=== PATIENT | female | born 1940 | race Caucasian/White ===

== ENCOUNTER 2017-04-08 09:57 | Day surgery (SDC) | payer MEDICARE, BC ==
[~2017-04-08 09:57] MED LIST: Bupivacaine 0.5% 50 ML MDV ONE; Lidocaine 1% with EPINEPHrine 1:100,000 50 ML MDV ONE
[2017-04-08] MEDS: Lactated Ringers 1,000 ML IV SCH ×2 (11:02→14:24)
[2017-04-08] MEDS ORDERED: fentaNYL 100 MCG/2 ML SDV ONE (11:40)
[2017-04-08] MEDS ORDERED: Propofol 200 MG/20 ML SDV ONE (11:40)
[2017-04-08] MEDS ORDERED: Succinylcholine 200 MG/10 ML MDV ONE (12:18)
[2017-04-08] MEDS ORDERED: Albuterol/Ipratropium 3.0-0.5 MG/3 ML Neb Soln INH PRN (12:50)
[2017-04-08] MEDS ORDERED: Fluticasone Propionate Nasal Spray 16 GM Bottle NASBOTH PRN (12:50)
[2017-04-08] MEDS ORDERED: Ondansetron 4 MG/2 ML SDV IVPUSH PRN (12:54)
[2017-04-08] MEDS ORDERED: HYDROmorphone/Normal Saline 15 MG/30 ML PCA IV PRN (13:07)
[2017-04-08] MEDS ORDERED: Naloxone 0.4 MG/ML SDV IVPUSH PRN (13:07)
[2017-04-08] MEDS: Insulin Aspart 100 Units/ML 3 ML Pen SUBCUT SCH ×2 (18:36→20:59)
[2017-04-08] MEDS ORDERED: Simvastatin 20 MG Tab PO SCH (21:00)
[2017-04-08] MEDS: Insulin Detemir 100 Units/ML 3 ML Pen SUBCUT SCH (21:00)
[2017-04-09] MEDS: Lactated Ringers 1,000 ML IV SCH (00:32)
[2017-04-09] MEDS ORDERED: Acetaminophen/HYDROcodone 325-5 MG Tab PO PRN (07:18)
[2017-04-09] MEDS ORDERED: Levothyroxine 100 MCG Tab PO SCH (07:30)
--- NOTE | 2017-04-09 07:34 | PCM.DCSUM1 ---
Discharge Summary - Hospital Course Free Text/Narrative:: This 77 year old white female had a slowly enlarging mass in her right axilla/ breast which finally became and uncomfortable nuisance. Mammogram is consistent with it being benign. She was admitted on April 08 and underwent excision of the mass which is consistent with a lipoma and measured about 25 cm in diameter. A JÚNIOR drain was left in place. She was kept over night. She feels fine. She is eating. She is afebrile and wants to go home. Her JÚNIOR drain produced more than 70 ml's over night. She is discharged after she is taught care of her JÚNIOR drain. Brief History: See above narrative - Discharge Data Discharge Date: 04/09/17 Discharge Disposition: Home, Self-Care 01 Condition: Good - Discharge Diagnosis/Problem(s) (1) Large mass of right breast SNOMED Code(s): 14260523 ICD Code: N63.10 - UNSPECIFIED LUMP IN THE RIGHT BREAST, UNSPECIFIED QUADRANT Status: Acute Current Visit: Yes Problem Details: Excision of large ( 25 cm) Right Axillary breast mass - Patient Summary/Data Operative Procedure(s) Performed: Excision of 25 cm in diamter right axilla/ breast mass. Consults: Consultations 04/08/17 12:54 Consult to Diabetic Nurse Specialist [CONS] Routine Comment: Physician Instructions: Consult to Inspector Eyeglass [CONS] Routine Comment: Physician Instructions: Quantity: Hospital Course: See above narrative. - Patient Instructions Diet: Usual Diet as Tolerated Activity: As Tolerated Driving, Other: Do not drive if taking narcotic pain medication. Showering/Bathing: No Tub Bathing/Swimming, Shower in AM Wound/Incision Care: Change Dressing Daily Notify Provider of: Fever, Increased Pain, Swelling and Redness, Drainage, Nausea and/or Vomiting - Discharge Plan Prescriptions/Med Rec: Acetaminophen/HYDROcodone [[place] 325-5 MG] 1 - 2 tab PO Q4H PRN #30 tablet PRN Reason: Pain Home Medications: Home Meds Albuterol/Ipratropium [Combivent Respimat] 1 puff PO Q4H PRN 04/06/17 [History] Atenolol [Tenormin] 25 mg PO DAILY 04/06/17 [History] Bumetanide 0.5 mg PO DAILY 04/06/17 [History] Fluticasone Propionate [Flonase Allergy Relief] 1 spray NASBOTH DAILY PRN [History] Ibuprofen [Advil] 400 mg PO DAILY 04/06/17 [History] Indomethacin 25 mg PO TID PRN 04/06/17 [History] Insulin Degludec [Tresiba Flextouch U-100] 30 units SUBCUT DAILY 04/06/17 [ History] Levothyroxine [Synthroid] 100 mcg PO DAILY 04/06/17 [History] Oxybutynin Chloride 5 mg PO DAILY 04/06/17 [History] Simvastatin [Zocor] 20 mg PO BEDTIME 04/06/17 [History] glipiZIDE [Glucotrol] 20 mg PO DAILY 04/06/17 [History] metFORMIN [Glucophage XR] 1,000 mg PO DAILY 04/06/17 [History] Acetaminophen/HYDROcodone [[place] 325-5 MG] 1 - 2 tab PO Q4H PRN #30 tablet 04/09 [Rx] Referrals: José Miguel Levine MD [Physician] - (Next week for pathology review, skin staple removal and (when JÚNIOR output is less than or equal to 30 ml's/day) removal of her JÚNIOR drain. ) Rashawn Aguillon MD [Primary Care Provider] - (See Dr. Aguillon if she can not make it to Dr. Levine next week for skin staple removal, review pathology and remove JÚNIOR drain when its daily output is less than or equal to 30 ml's per day. ) - Discharge Summary/Plan Comment DC Time >30 min.: Yes Discharge Summary/Plan Comment: See above narrative. - Review of Systems General: Reports: No Symptoms HEENT: Reports: No Symptoms Pulmonary: Reports: No Symptoms Cardiovascular: Reports: No Symptoms Gastrointestinal: Reports: No Symptoms Genitourinary: Reports: No Symptoms Musculoskeletal: Reports: No Symptoms Skin: Reports: No Symptoms Neurological: Reports: No Symptoms Psychiatric: Reports: No Symptoms - Patient Data Vitals - Most Recent: Last Vital Signs Temp 96.8 F 04/09/17 07:21 Pulse 71 04/09/17 07:21 Resp 18 04/09/17 07:21 BP 160/59 H 04/09/17 07:21 Pulse Ox 92 L 11/16/17 07:21 Weight - Most Recent: 258 lb I&O - Last 24 hours: Intake & Output 04/08/17 04/09/17 04/09/17 22:59 06:59 14:59 Intake Total 440 1190 Output Total 220 750 Balance 220 1190 -750 Lab Results - Last 24 hrs: Laboratory Results - last 24 hr 04/09/17 04/09/17 Range/Units 04:10 04:10 WBC 11.7 H (4.5-11.0) K/uL RBC 4.56 (3.30-5.50) M/uL Hgb 12.9 (12.0-15.0) g/dL Hct 42.1 (36.0-48.0) % MCV 92 (80-98) fL MCH 28 (27-31) pg MCHC 31 L (32-36) % Plt Count 321 (150-400) K/uL Sodium 142 (140-148) mmol/L Potassium 4.7 (3.6-5.2) mmol/L Chloride 106 (100-108) mmol/L Carbon Dioxide 29 (21-32) mmol/L Anion Gap 7.4 (5.0-14.0) mmol/L BUN 29 H (7-18) mg/dL Creatinine 1.2 H (0.6-1.0) mg/dL Est Cr Clr Drug Dosing 35.33 mL/min Estimated GFR (MDRD) 44 L (>60) Glucose 144 H (74-106) mg/dL Calcium 9.4 (8.5-10.1) mg/dL Med Orders - Current: Current Medications Hydrocodone Bitart/Acetaminophen ([place] 325-5 Mg) 1 - 2 tab PO Q4H PRN PRN Reason: Pain Albuterol/Ipratropium (Duoneb 3.0-0.5 Mg/3 Ml) 3 ml INH Q4H PRN PRN Reason: Shortness of Breath Atenolol (Tenormin) 25 mg PO DAILY LARRY Bumetanide (Bumex) 0.5 mg PO DAILY LARRY Fluticasone Propionate (Flonase) 0 gm NASBOTH DAILY PRN PRN Reason: Congestion Glipizide (Glucotrol) 20 mg PO DAILY@0800 LARRY Lactated Ringer's (Ringers, Lactated) 1,000 mls @ 100 mls/hr IV ASDIRECTED LARRY Last Admin: 04/09/17 00:32 Dose: 100 mls/hr Insulin Aspart (Novolog) 0 unit SUBCUT ASDIRECTED [facility] PRN Reason: Protocol Last Admin: 04/08/17 20:59 Dose: 4 units Insulin Detemir (Levemir) 15 unit SUBCUT BID [facility] Last Admin: 04/08/17 21:00 Dose: 15 units Levothyroxine Sodium (Synthroid) 100 mcg PO ACBREAKFAST [facility] Metformin HCl (Glucophage Xr) 1,000 mg PO DAILY@0800 [facility] Naloxone HCl (Narcan) 0.4 mg IVPUSH Q2M PRN PRN Reason: Respiratory Distress Ondansetron HCl (Zofran) 4 mg IVPUSH Q6H PRN PRN Reason: Nausea/Vomiting Oxybutynin Chloride (Oxybutynin) 5 mg PO DAILY [facility] Simvastatin (Zocor) 20 mg PO BEDTIME [facility] Last Admin: 04/08/17 21:04 Dose: 20 mg Discontinued Medications Bupivacaine HCl (Marcaine 0.5%) Confirm Administered Dose 50 ml .ROUTE .STK-MED ONE Stop: 04/08/17 07:31 Fentanyl (Sublimaze) Confirm Administered Dose 100 mcg .ROUTE .STK-MED ONE Stop: 04/08/17 11:41 Hydromorphone HCl (Dilaudid Relocation Coordinator 15 Mg In Ns 30 Ml) 0 mg IV ASDIRECTED PRN; Protocol PRN Reason: Pain Last Admin: 04/08/17 13:18 Dose: 0.3 mg Lidocaine/Epinephrine (Xylocaine 1% With Epinephrine 1:100,000) Confirm Administered Dose 50 ml .ROUTE .STK-MED ONE Stop: 04/08/17 07:31 Propofol (Diprivan 20 Ml) Confirm Administered Dose 200 mg .ROUTE .STK-MED ONE Stop: 04/08/17 11:41 Succinylcholine Chloride (Quelicin) Confirm Administered Dose 200 mg .ROUTE .STK -MED ONE Stop: 04/08/17 12:19 - Exam General: Reports: Alert, Oriented, Cooperative Lungs: Reports: Clear to Auscultation, Normal Respiratory Effort Cardiovascular: Reports: Regular Rate, Regular Rhythm GI/Abdominal Exam: Normal Bowel Sounds, Soft, Non-Tender Back Exam: Reports: Normal Inspection, Full Range of Motion Extremities: Normal Inspection Skin: Reports: Warm, Dry, Intact Wound/Incisions: Reports: Dressing Dry and Intact Neurological: Reports: No New Focal Deficit Psy/Mental Status: Reports: Alert, Normal Affect, Normal Mood *Q Meaningful Use (DIS) - VTE *Q VTE Criteria *Q: - Stroke *Q Stroke Criteria *Q: - AMI *Q AMI Criteria *Q:
[2017-04-09] MEDS ORDERED: metFORMIN 500 MG Tab.ER PO SCH (08:00)
[2017-04-09] MEDS ORDERED: glipiZIDE 5 MG Tab PO SCH (08:00)
[2017-04-09] MEDS: Insulin Detemir 100 Units/ML 3 ML Pen SUBCUT SCH (08:32)
[2017-04-09] MEDS: Insulin Aspart 100 Units/ML 3 ML Pen SUBCUT SCH (08:40)
[2017-04-09] MEDS ORDERED: INSULIN DEGLUDEC 30 UNIT SUBCUT SCH (09:00)
[2017-04-09] MEDS ORDERED: Atenolol 25 MG Tab PO SCH (09:00)
[2017-04-09] MEDS ORDERED: Oxybutynin 5 MG Tab PO SCH (09:00)
[2017-04-09] MEDS ORDERED: Bumetanide 1 MG Tab PO SCH (09:00)
--- NOTE | 2017-04-09 10:56 | OR ---
DATE OF PROCEDURE: 04/08/2017 PREOPERATIVE DIAGNOSIS: Large right axillary and breast mass. POSTOPERATIVE DIAGNOSIS: A 25 cm lipomatous-appearing right axillary and breast mass. PROCEDURE: Excision of large 25 cm in diameter right axillary and breast mass. SURGEON: Magnus Marina MD. ANESTHESIA: General endotracheal. INDICATION: This 77-year-old white female has noted a mass developing in the tail of her right breast. Over years, it has slowly increased in size, and it has become bothersome, as it has become so large. Radiographic studies indicate it appears benign. Request is made for excision of this mass. I counseled her for excision of this large right mass, which appears to be in the area of the tail of breast, including risks and alternatives, and she gave her informed consent to proceed. DESCRIPTION OF PROCEDURE: After adequate general endotracheal anesthesia was obtained, a wedge was placed under her right flank. Her upper chest, right shoulder, and arm to the elbow, along with her neck were prepped and draped in the usual sterile fashion. Time-out was held. A transverse incision was made over this mass. The underlying mass was identified. It could be easily extruded out of the surrounding tissue with compression laterally on both sides. It is consistent with a lipoma. There was no evidence of invasion. The base of it was divided with cautery and delivered from the field. It measured 25 cm in diameter. The incision was irrigated with sterile water and suctioned dry. We did place clips around the edges on all sides of the cavity. A Jose-Baca drain was brought out through a separate stab wound inferiorly and placed up in the cavity. Interrupted stitches of 3-0 Vicryl were used to close the deep tissues. Skin keyshawn were placed to approximate the skin. A Jose-Baca drain was anchored with 3-0 Vicryl suture. A sterile dressing was applied. The anesthesia was reversed. She was extubated and brought to recovery room in good condition. Magnus Marina MD /[id number] MTDD
== END 2017-04-09 10:10 | disposition home or self-care (01) ==
LOC: JP.SDS 09:57 → JP.MS 14:01 → JP.SDS 04-09 10:10
PROVIDERS: ATTEND Surgery
DX: M79.89 Other specified soft tissue disorders (principal); N63.10 Unspecified lump in the right breast, unspecified quadrant; E03.9 Hypothyroidism, unspecified; E11.22 Type 2 diabetes mellitus with diabetic chronic kidney disease; J44.9 Chronic obstructive pulmonary disease, unspecified; I12.9 Hypertensive chronic kidney disease with stage 1 through stage 4 chronic kidney disease, or unspecified chronic kidney disease; N18.3 Chronic kidney disease, stage 3 (moderate); Z79.84 Long term (current) use of oral hypoglycemic drugs; Z79.899 Other long term (current) drug therapy
CPT/HCPCS: 21552; 36415; 80048; 82962; 85027; 88304; A9270; J0330; J1170; J2704; J3010; J7120

== ENCOUNTER 2017-10-13 10:23 | Inpatient (IN) | payer MEDICARE, BC ==
[2017-10-13] MEDS ORDERED: Lactated Ringers 1,000 ML IV SCH (10:45)
[2017-10-13] MEDS ORDERED: cefTRIAXone 2 GM in Sodium Chloride 0.9% 50 ML IV SCH (10:45)
[2017-10-13] MEDS ORDERED: Albuterol/Ipratropium 3.0-0.5 MG/3 ML Neb Soln NEB ONE (10:47)
--- NOTE | 2017-10-13 10:53 | EDM.PDOC ---
ED HPI GENERAL MEDICAL PROBLEM - General Chief Complaint: Respiratory Problem Stated Complaint: SHORTNESS OF BREATH Time Seen by Provider: 10/13/17 10:39 Source of Information: Reports: Patient, Family, RN Notes Reviewed History Limitations: Reports: Respiratory Distress - History of Present Illness INITIAL COMMENTS - FREE TEXT/NARRATIVE: 77-year-old female presents to the emergency department today with complaint of shortness of breath, she states she's been getting ill for the last 3 days does monitor her oxygen saturation at home noticed last night she was down into the low 70s. On arrival to the emergency department initial vital signs show oxygen saturation 65% extremely dyspneic and in respiratory distress, she can speak in single word sentences only, complains of rhinorrhea, shortness of breath no nausea vomiting chest pain no or GI symptomatology - Related Data Allergies Allergy/AdvReac Type Severity Reaction Status Date / Time No Known Allergies Allergy Verified 04/08/17 10:41 Home Meds: Home Meds Albuterol/Ipratropium [Combivent Respimat] 1 puff PO Q4H PRN 04/06/17 [History] Atenolol [Tenormin] 25 mg PO DAILY 04/06/17 [History] Bumetanide 0.5 mg PO DAILY 04/06/17 [History] Fluticasone Propionate [Flonase Allergy Relief] 1 spray NASBOTH DAILY PRN [History] Ibuprofen [Advil] 400 mg PO DAILY 04/06/17 [History] Indomethacin 25 mg PO TID PRN 04/06/17 [History] Levothyroxine [Synthroid] 100 mcg PO DAILY 04/06/17 [History] Oxybutynin Chloride 5 mg PO DAILY 04/06/17 [History] Simvastatin [Zocor] 20 mg PO BEDTIME 04/06/17 [History] glipiZIDE [Glucotrol] 20 mg PO DAILY 04/06/17 [History] metFORMIN [Glucophage XR] 1,000 mg PO DAILY 04/06/17 [History] Insulin Degludec [Tresiba Flextouch U-100] 35 units SUBCUT DAILY 10/13/17 [ History] Past Medical History HEENT History: Reports: Cataract, Epistaxis, Other (See Below) Other HEENT History: wears glasses Cardiovascular History: Reports: High Cholesterol, Hypertension Respiratory History: Reports: Asthma, COPD, Other (See Below) Other Respiratory History: uses home O2 Genitourinary History: Reports: Other (See Below) Other Genitourinary History: large right breast mass 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: Musculoskeletal History: Reports: Arthritis Endocrine/Metabolic History: Reports: Diabetes, Type II, Hypothyroidism, Obesity /BMI 30+ Oncologic (Cancer) History: Reports: Other (See Below) 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 Denies: Fever, Chills HEENT: Reports: Rhinitis Respiratory: Reports: Shortness of Breath, Cough. Denies: Wheezing, Sputum Cardiovascular: Reports: Dyspnea on Exertion GI/Abdominal: Reports: No Symptoms : Reports: No Symptoms Musculoskeletal: Reports: No Symptoms Skin: Reports: No Symptoms Neurological: Reports: No Symptoms ED EXAM, GENERAL - Physical Exam Exam: See Below Free Text/Narrative:: General: Obese female, in respiratory distress tripoding speaking in single word sentences, alert and oriented x3 HEENT: head is atraumatic normocephalic, eyes pupils equal round reactive to light, sclera clear no conjunctivitis appreciated. Ears tympanic membranes clear and turner landmarks and light reflex are present bilaterally canals are clear. Nose no septal deviation, nares are clear, no blood present. Mouth mucosa is moist and pink no erythema or exudate noted in soft palate, tongue is midline uvula is midline, dentition is intact. Neck: Supple no thyromegaly no tracheal deviation. Nodes: Cervical nodes subclavicular nodes nontender no palpable lymphadenopathy noted. Lungs: Breath sounds are distant on appreciate any adventitious noises CV: Tachycardic rate and rhythm S1 and S2 appreciated no murmurs rubs or gallops noted. Abdomen: Soft, obese, nontender, no palpable masses or organomegaly appreciated , no distention no guarding bowel sounds are present, . Neuro: Cranial nerves II through XII grossly intact Skin: Warm and dry, intact Extremities: No lower extremity edema appreciated, Course - Vital Signs Last Recorded V/S: Last Vital Signs Temp 97.2 F 10/13/17 10:28 Pulse 109 H 10/13/17 10:44 Resp 22 H 10/13/17 10:44 BP 189/100 H 10/13/17 10:44 Pulse Ox 94 L 10/13/17 10:44 - Orders/Labs/Meds Orders: Active Orders 24 hr Category Date Time Status BIPAP Adult [RT BiPAP/CPAP] [RC] ASDIRECTED Care 10/13/17 10:53 Active RT Aerosol Therapy [RC] ASDIRECTED Care 10/13/17 10:47 Active Vital Signs [RC] Q1H Care 10/13/17 10:44 Active Chest 1V Frontal [CR] Urgent Exams 10/13/17 10:47 Taken CULTURE BLOOD [BC] Urgent Lab 10/13/17 10:50 Received CULTURE BLOOD [BC] Urgent Lab 10/13/17 11:00 Received UA W/MICROSCOPIC [URIN] Urgent Lab 10/13/17 10:44 Ordered Lactated Ringers [Ringers, Lactated] 1,000 ml Med 10/13/17 10:45 Active IV ASDIRECTED Blood Culture x2 Reflex Set [OM.PC] Urgent Oth 10/13/17 10:44 Ordered Medication Orders Lactated Ringer's (Ringers, Lactated) 1,000 mls @ 500 mls/hr IV ASDIRECTED LARRY Last Admin: 10/13/17 10:54 Dose: 500 mls/hr Labs: Laboratory Tests 10/13/17 10/13/17 10/13/17 Range/Units 11:00 11:00 11:00 WBC 23.0 H (4.5-11.0) K/uL RBC 5.24 (3.30-5.50) M/uL Hgb 15.6 H D (12.0-15.0) g/dL Hct 48.9 H (36.0-48.0) % MCV 93 (80-98) fL MCH 30 (27-31) pg MCHC 32 (32-36) % Plt Count 267 (150-400) K/uL Neut % (Auto) 94 H (36-66) % Lymph % (Auto) 2 L (24-44) % [place] % (Auto) 4 (2-6) % Eos % (Auto) 0 L (2-4) % Baso % (Auto) 0 (0-1) % Puncture Site ABG pH (7.350-7.450) ABG pCO2 (35.0-42.0) mmHg ABG pO2 (75.0-100.0) mmHg ABG HCO3 (22.0-26.0) mmol/L ABG Total CO2 (21.0-25.0) mmol/L ABG O2 Saturation (95.0-98.0) % ABG O2 Content (15.0-23.0) %vol ABG Base Excess mm/L ABG Hemoglobin (12.0-16.0) g/dL ABG Oxyhemoglobin % ABG Carboxyhemoglobin (0.0-1.6) % ABG Methemoglobin % Alen Test O2 Delivery Device Oxygen Flow Rate L Sodium 143 (140-148) mmol/L Potassium 4.5 (3.6-5.2) mmol/L Chloride 106 (100-108) mmol/L Carbon Dioxide 28 (21-32) mmol/L Anion Gap 9.1 (5.0-14.0) mmol/L BUN 23 H (7-18) mg/dL Creatinine 1.2 H (0.6-1.0) mg/dL Est Cr Clr Drug Dosing 36.75 mL/min Estimated GFR (MDRD) 44 L (>60) Glucose 216 H (74-106) mg/dL Lactic Acid 1.2 (0.4-2.0) mmol/L Calcium 8.7 (8.5-10.1) mg/dL Total Bilirubin 0.5 (0.2-1.0) mg/dL AST 16 (15-37) U/L ALT 22 (12-78) U/L Alkaline Phosphatase 77 (46-116) U/L C-Reactive Protein 8.89 H (0.0-0.3) mg/dL NT-Pro-B Natriuret Pep (5-450) pg/mL Total Protein 7.6 (6.4-8.2) g/dL Albumin 3.7 (3.4-5.0) g/dL Globulin 3.9 H (2.3-3.5) g/dL Albumin/Globulin Ratio 1.0 L (1.2-2.2) 10/13/17 10/13/17 Range/Units 11:00 11:00 WBC (4.5-11.0) K/uL RBC (3.30-5.50) M/uL Hgb (12.0-15.0) g/dL Hct (36.0-48.0) % MCV (80-98) fL MCH (27-31) pg MCHC (32-36) % Plt Count (150-400) K/uL Neut % (Auto) (36-66) % Lymph % (Auto) (24-44) % [place] % (Auto) (2-6) % Eos % (Auto) (2-4) % Baso % (Auto) (0-1) % Puncture Site Rt radial ABG pH 7.355 (7.350-7.450) ABG pCO2 46.7 H (35.0-42.0) mmHg ABG pO2 69.8 L (75.0-100.0) mmHg ABG HCO3 25.4 (22.0-26.0) mmol/L ABG Total CO2 22.2 (21.0-25.0) mmol/L ABG O2 Saturation 93.5 L (95.0-98.0) % ABG O2 Content 20.1 (15.0-23.0) %vol ABG Base Excess -0.1 mm/L ABG Hemoglobin 15.5 (12.0-16.0) g/dL ABG Oxyhemoglobin 92.1 % ABG Carboxyhemoglobin 0.9 (0.0-1.6) % ABG Methemoglobin 0.6 % Alen Test Pass O2 Delivery Device Simple mask Oxygen Flow Rate 15 L Sodium (140-148) mmol/L Potassium (3.6-5.2) mmol/L Chloride (100-108) mmol/L Carbon Dioxide (21-32) mmol/L Anion Gap (5.0-14.0) mmol/L BUN (7-18) mg/dL Creatinine (0.6-1.0) mg/dL Est Cr Clr Drug Dosing mL/min Estimated GFR (MDRD) (>60) Glucose (74-106) mg/dL Lactic Acid (0.4-2.0) mmol/L Calcium (8.5-10.1) mg/dL Total Bilirubin (0.2-1.0) mg/dL AST (15-37) U/L ALT (12-78) U/L Alkaline Phosphatase (46-116) U/L C-Reactive Protein (0.0-0.3) mg/dL NT-Pro-B Natriuret Pep 2995 H (5-450) pg/mL Total Protein (6.4-8.2) g/dL Albumin (3.4-5.0) g/dL Globulin (2.3-3.5) g/dL Albumin/Globulin Ratio (1.2-2.2) Meds: Medications Generic Name Dose Route Start Last Admin Trade Name Freq PRN Reason Stop Dose Admin Lactated Ringer's 1,000 mls @ 500 mls/hr 10/13/17 10:45 10/13/17 10:54 Ringers, Lactated IV 500 mls/hr ASDIRECTED LARRY Administration Discontinued Medications Generic Name Dose Route Start Last Admin Trade Name Freq PRN Reason Stop Dose Admin Albuterol/Ipratropium 3 ml 10/13/17 10:47 10/13/17 10:53 Duoneb 3.0-0.5 Mg/3 Ml NEB 10/13/17 10:48 3 ml ONETIME ONE Administration Ceftriaxone Sodium 2 gm/ 50 mls @ 100 mls/hr 10/13/17 11:00 10/13/17 11:16 Sodium Chloride IV 10/13/17 11:29 100 mls/hr ONETIME ONE Administration Departure - Departure Time of Disposition: 13:20 Disposition: Admitted As Inpatient 66 Condition: Fair Clinical Impression: Sepsis Qualifiers: Sepsis type: sepsis due to unspecified organism Qualified Code(s): A41.9 - Sepsis, unspecified organism - Discharge Information Referrals: Rashawn Aguillon MD [Primary Care Provider] - Forms: ED Department Discharge - My Orders Last 24 Hours: My Active Orders 10/13/17 10:44 Vital Signs [RC] Q1H UA W/MICROSCOPIC [URIN] Urgent Blood Culture x2 Reflex Set [OM.PC] Urgent 10/13/17 10:45 Lactated Ringers [Ringers, Lactated] 1,000 ml IV ASDIRECTED 10/13/17 10:47 RT Aerosol Therapy [RC] ASDIRECTED Chest 1V Frontal [CR] Urgent 10/13/17 10:50 CULTURE BLOOD [BC] Urgent 10/13/17 10:53 BIPAP Adult [RT BiPAP/CPAP] [RC] ASDIRECTED 10/13/17 11:00 CULTURE BLOOD [BC] Urgent - Assessment/Plan Last 24 Hours: My Active Orders 10/13/17 10:44 Vital Signs [RC] Q1H UA W/MICROSCOPIC [URIN] Urgent Blood Culture x2 Reflex Set [OM.PC] Urgent 10/13/17 10:45 Lactated Ringers [Ringers, Lactated] 1,000 ml IV ASDIRECTED 10/13/17 10:47 RT Aerosol Therapy [RC] ASDIRECTED Chest 1V Frontal [CR] Urgent 10/13/17 10:50 CULTURE BLOOD [BC] Urgent 10/13/17 10:53 BIPAP Adult [RT BiPAP/CPAP] [RC] ASDIRECTED 10/13/17 11:00 CULTURE BLOOD [BC] Urgent Plan: Assessment Acuity = acute Site and laterality = sepsis secondary to pneumonia complicated patient with known history of chronic obstructive pulmonary disease Etiology = suspicious for bacterial cause Manifestations = hypoxic, tachypnea, hypertensive Location of injury = Home Lab values = WBC elevated at 23.0 consistent leukocytosis ABG reveals pH 7.35 PCO2 46.7 PO2 69.8 and a bicarbonate 25.4 creatinine elevated 1.2 consistent with chronic renal failure stage G IIIB CRP elevated 8.9 lactic acid normal at 1.6 BNP elevated 2995 consistent with fluid overload type pattern chest x-ray reveals loss of costophrenic angle on the left lower lobe Plan Called discussed case with hospitalist radiation control technician he agreed to come and evaluate the patient emergency department for admission This note was dictated using [employer] voice recognition software please call with any questions on syntax or grammar.
[2017-10-13] MEDS ORDERED: cefTRIAXone 2 GM in Sodium Chloride 0.9% 50 ML IV ONE (11:00)
[2017-10-13] MEDS ORDERED: Azithromycin 500 MG in Sodium Chloride 0.9% 250 ML IV ONE (13:37)
[2017-10-13] MEDS ORDERED: methylPREDNISolone Sodium Succinate 125 MG/2 ML SDV IVPUSH ONE (13:37)
--- NOTE | 2017-10-13 13:54 | PCM.HP ---
H&P History of Present Illness - General Date of Service: 10/13/17 Admit Problem/Dx: Admission Diagnosis/Problem Admission Diagnosis/Problem Acute bronchitis Source of Information: Patient, Family, Provider History Limitations: Reports: No Limitations - History of Present Illness Initial Comments - Free Text/Narative: Giana presents to the emergency room today with 3 days of progressive shortness of breath and increasing cough. She coughed fairly persistently throughout much of the night last night. She has a loose cough but is not producing sputum. She is now short of breath even at rest. She did check her oxygen saturations at home and noted them to be in the 70s. She normally runs in the low 90s. She does have home oxygen but uses this only intermittently. She did use her inhaler at home but this did not provide much benefit. No subjective fevers or chills at home. She does not have chest pain or pleuritic chest pain. No sick contacts or travel. No change in bowel or bladder habits. No nausea or abdominal pain. Has not had much to eat in the last couple of days. Workup in the emergency room revealed significant hypoxia. White blood cell count is elevated at more than 20,000. Chest x-ray did not suggest pneumonia. She was started on noninvasive ventilation in the emergency room and will be admitted to the intensive care unit. - Related Data Allergies/Adverse Reactions: Allergies Allergy/AdvReac Type Severity Reaction Status Date / Time No Known Allergies Allergy Verified 04/08/17 10:41 Home Medications: Home Meds Albuterol/Ipratropium [Combivent Respimat] 1 puff PO Q4H PRN 04/06/17 [History] Atenolol [Tenormin] 25 mg PO DAILY 04/06/17 [History] Bumetanide 0.5 mg PO DAILY 04/06/17 [History] Fluticasone Propionate [Flonase Allergy Relief] 1 spray NASBOTH DAILY PRN [History] Ibuprofen [Advil] 400 mg PO DAILY 04/06/17 [History] Indomethacin 25 mg PO TID PRN 04/06/17 [History] Levothyroxine [Synthroid] 100 mcg PO DAILY 04/06/17 [History] Oxybutynin Chloride 5 mg PO DAILY 04/06/17 [History] Simvastatin [Zocor] 20 mg PO BEDTIME 04/06/17 [History] glipiZIDE [Glucotrol] 20 mg PO DAILY 04/06/17 [History] metFORMIN [Glucophage XR] 1,000 mg PO DAILY 04/06/17 [History] Insulin Degludec [Tresiba Flextouch U-100] 35 units SUBCUT DAILY 10/13/17 [ History] Past Medical History HEENT History: Reports: Cataract, Epistaxis, Other (See Below) Other HEENT History: wears glasses Cardiovascular History: Reports: High Cholesterol, Hypertension Respiratory History: Reports: Asthma, COPD, Other (See Below) Other Respiratory History: uses home O2 Genitourinary History: Reports: Other (See Below) Other Genitourinary History: large right breast mass 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: Musculoskeletal History: Reports: Arthritis Endocrine/Metabolic History: Reports: Diabetes, Type II, Hypothyroidism, Obesity /BMI 30+ Oncologic (Cancer) History: Reports: Other (See Below) Other Oncologic History: left arm cancerous lump removed - Past Surgical History HEENT Surgical History: Reports: Adenoidectomy, Cataract Surgery, Tonsillectomy GI Surgical History: Reports: Appendectomy, Colonoscopy Female Surgical History: Reports: Hysterectomy, Salpingo-Oophorectomy Musculoskeletal Surgical History: Reports: Hip Replacement Social & Family History - Family History Respiratory: Denies: COPD - Tobacco Use Smoking Status *Q: Former Smoker Used Tobacco, but Quit: Yes Month/Year Tobacco Last Used: 2000 - Caffeine Use Caffeine Use: Reports: Coffee, Soda - Alcohol Use Alcohol Use History: No - Recreational Drug Use Recreational Drug Use: No H&P Review of Systems - Review of Systems: Review Of Systems: See Below Free Text/Narrative: A complete 12 point review of systems was obtained. Pertinent positives and negatives are noted in the history of present illness. All other systems were reviewed and were negative except as noted. Exam - Exam Exam: See Below - Vital Signs Vital Signs: Last Vital Signs Temp 36.2 C 10/13/17 10:28 Pulse 109 H 10/13/17 10:44 Resp 22 H 10/13/17 10:44 BP 189/100 H 10/13/17 10:44 Pulse Ox 94 L 10/13/17 10:44 Weight: 113.398 kg - Exam Quality Assessment: Supplemental Oxygen General: Alert, Oriented, Cooperative, Mild Distress HEENT: Conjunctiva Clear, Mucosa Moist & Gackle. No: Scleral Icterus Neck: Supple, Trachea Midline. No: Lymphadenopathy Lungs: Decreased Breath Sounds (poor air movement diffusely, especially in the lower lung russell). No: Normal Respiratory Effort (increased work of breathing) , Wheezing Cardiovascular: Regular Rhythm, Tachycardia GI/Abdominal Exam: Normal Bowel Sounds, Soft, Non-Tender, No Distention Back Exam: Full Range of Motion. No: Paraspinal Tenderness Extremities: Pedal Edema (mild bilateral ankle edema). No: Increased Warmth Peripheral Pulses: 2+: Radial (L), Radial (R) Skin: Warm, Dry, Intact Neuro Extensive - Mental Status: Alert, Oriented x3, Nl Response to Commands Neuro Extensive - Motor, Sensory, Reflexes: CN II-XII Intact. No: Dysarthria, Abnormal Motor, Tremor Psychiatric: Alert, Normal Affect - Patient Data Lab Results Last 24 hrs: Laboratory Results - last 24 hr 10/13/17 10/13/17 10/13/17 Range/Units 11:00 11:00 11:00 WBC 23.0 H (4.5-11.0) K/uL RBC 5.24 (3.30-5.50) M/uL Hgb 15.6 H D (12.0-15.0) g/dL Hct 48.9 H (36.0-48.0) % MCV 93 (80-98) fL MCH 30 (27-31) pg MCHC 32 (32-36) % Plt Count 267 (150-400) K/uL Neut % (Auto) 94 H (36-66) % Lymph % (Auto) 2 L (24-44) % Letcher % (Auto) 4 (2-6) % Eos % (Auto) 0 L (2-4) % Baso % (Auto) 0 (0-1) % Puncture Site ABG pH (7.350-7.450) ABG pCO2 (35.0-42.0) mmHg ABG pO2 (75.0-100.0) mmHg ABG HCO3 (22.0-26.0) mmol/L ABG Total CO2 (21.0-25.0) mmol/L ABG O2 Saturation (95.0-98.0) % ABG O2 Content (15.0-23.0) %vol ABG Base Excess mm/L ABG Hemoglobin (12.0-16.0) g/dL ABG Oxyhemoglobin % ABG Carboxyhemoglobin (0.0-1.6) % ABG Methemoglobin % Alen Test O2 Delivery Device Oxygen Flow Rate L Sodium 143 (140-148) mmol/L Potassium 4.5 (3.6-5.2) mmol/L Chloride 106 (100-108) mmol/L Carbon Dioxide 28 (21-32) mmol/L Anion Gap 9.1 (5.0-14.0) mmol/L BUN 23 H (7-18) mg/dL Creatinine 1.2 H (0.6-1.0) mg/dL Est Cr Clr Drug Dosing 36.75 mL/min Estimated GFR (MDRD) 44 L (>60) Glucose 216 H (74-106) mg/dL Lactic Acid 1.2 (0.4-2.0) mmol/L Calcium 8.7 (8.5-10.1) mg/dL Total Bilirubin 0.5 (0.2-1.0) mg/dL AST 16 (15-37) U/L ALT 22 (12-78) U/L Alkaline Phosphatase 77 (46-116) U/L C-Reactive Protein 8.89 H (0.0-0.3) mg/dL NT-Pro-B Natriuret Pep (5-450) pg/mL Total Protein 7.6 (6.4-8.2) g/dL Albumin 3.7 (3.4-5.0) g/dL Globulin 3.9 H (2.3-3.5) g/dL Albumin/Globulin Ratio 1.0 L (1.2-2.2) 10/13/17 10/13/17 Range/Units 11:00 11:00 WBC (4.5-11.0) K/uL RBC (3.30-5.50) M/uL Hgb (12.0-15.0) g/dL Hct (36.0-48.0) % MCV (80-98) fL MCH (27-31) pg MCHC (32-36) % Plt Count (150-400) K/uL Neut % (Auto) (36-66) % Lymph % (Auto) (24-44) % Letcher % (Auto) (2-6) % Eos % (Auto) (2-4) % Baso % (Auto) (0-1) % Puncture Site Rt radial ABG pH 7.355 (7.350-7.450) ABG pCO2 46.7 H (35.0-42.0) mmHg ABG pO2 69.8 L (75.0-100.0) mmHg ABG HCO3 25.4 (22.0-26.0) mmol/L ABG Total CO2 22.2 (21.0-25.0) mmol/L ABG O2 Saturation 93.5 L (95.0-98.0) % ABG O2 Content 20.1 (15.0-23.0) %vol ABG Base Excess -0.1 mm/L ABG Hemoglobin 15.5 (12.0-16.0) g/dL ABG Oxyhemoglobin 92.1 % ABG Carboxyhemoglobin 0.9 (0.0-1.6) % ABG Methemoglobin 0.6 % Alen Test Pass O2 Delivery Device Simple mask Oxygen Flow Rate 15 L Sodium (140-148) mmol/L Potassium (3.6-5.2) mmol/L Chloride (100-108) mmol/L Carbon Dioxide (21-32) mmol/L Anion Gap (5.0-14.0) mmol/L BUN (7-18) mg/dL Creatinine (0.6-1.0) mg/dL Est Cr Clr Drug Dosing mL/min Estimated GFR (MDRD) (>60) Glucose (74-106) mg/dL Lactic Acid (0.4-2.0) mmol/L Calcium (8.5-10.1) mg/dL Total Bilirubin (0.2-1.0) mg/dL AST (15-37) U/L ALT (12-78) U/L Alkaline Phosphatase (46-116) U/L C-Reactive Protein (0.0-0.3) mg/dL NT-Pro-B Natriuret Pep 2995 H (5-450) pg/mL Total Protein (6.4-8.2) g/dL Albumin (3.4-5.0) g/dL Globulin (2.3-3.5) g/dL Albumin/Globulin Ratio (1.2-2.2) Result Diagrams: 10/13/17 11:00 10/13/17 11:00 Imaging Impressions Last 24 hrs: chest x-ray - images personally reviewed and compared to CT scan from 2015 - no obvious mass, infiltrate or effusion is noted. Heart size appears normal. No evidence for congestive heart failure. *Q Meaningful Use (ADM) - VTE Risk Assess *Q Each Risk Factor Represents 1 Point: Swollen Legs, Current, Obesity ( BMI > 25 kg/m2), Serious lung disease including pneumonia, Abnormal Pulmonary Function ( COPD) Total Score 1 Point Risk Factors: 4 Each Risk Factor Represents 2 Points: Malignancy (present or previous) Total Score 2 Point Risk Factors: 2 Each Risk Factor Represents 3 Points: Age 75 Years or Greater Total Score 3 Point Risk Factors: 3 Each Risk Factor Represents 5 Points: None Total Score 5 Point Risk Factors: 0 Venous Thromboembolism Risk Factor Score *Q: 9 - Problem List (1) Acute bronchitis SNOMED Code(s): 96394644 ICD Code: J20.9 - ACUTE BRONCHITIS, UNSPECIFIED Status: Acute Current Visit: Yes Qualifiers: Bronchitis organism: unspecified organism Qualified Code(s): J20.9 - Acute bronchitis, unspecified (2) Acute respiratory failure with hypoxia SNOMED Code(s): 09801540, 734959949 ICD Code: J96.01 - ACUTE RESPIRATORY FAILURE WITH HYPOXIA Status: Acute Current Visit: Yes (3) Acute exacerbation of chronic obstructive airways disease SNOMED Code(s): 041342929 ICD Code: J44.1 - CHRONIC OBSTRUCTIVE PULMONARY DISEASE W (ACUTE) EXACERBATION Status: Acute Current Visit: Yes (4) Morbid obesity with BMI of 40.0-44.9, adult SNOMED Code(s): 875899322 ICD Code: E66.01 - MORBID (SEVERE) OBESITY DUE TO EXCESS CALORIES; Z68.41 - BODY MASS INDEX (BMI) 40.0-44.9, ADULT Status: Chronic Current Visit: No (5) Type 2 diabetes mellitus SNOMED Code(s): 60030878 ICD Code: E11.9 - TYPE 2 DIABETES MELLITUS WITHOUT COMPLICATIONS Status: Chronic Current Visit: No Qualifiers: Diabetes mellitus intermediate insulin use: with intermediate use Diabetes mellitus complication status: with unspecified complications Qualified Code(s) : E11.8 - Type 2 diabetes mellitus with unspecified complications; Z79.4 - medical terminologist (current) use of insulin Problem List Initiated/Reviewed/Updated: Yes Orders Last 24hrs: Active Orders 24 hr Category Date Time Status Patient Status Manage Transfer [TRANSFER] Routine ADT 10/13/17 13:38 Ordered BIPAP Adult [RT BiPAP/CPAP] [RC] ASDIRECTED Care 10/13/17 10:53 Active RT Aerosol Therapy [RC] ASDIRECTED Care 10/13/17 10:47 Active Vital Signs [RC] Q1H Care 10/13/17 10:44 Active Chest 1V Frontal [CR] Urgent Exams 10/13/17 10:47 Taken CULTURE BLOOD [BC] Urgent Lab 10/13/17 10:50 Received CULTURE BLOOD [BC] Urgent Lab 10/13/17 11:00 Received UA W/MICROSCOPIC [URIN] Urgent Lab 10/13/17 10:44 Ordered Azithromycin [Zithromax] 500 mg Med 10/13/17 13:37 Active Sodium Chloride 0.9% [Normal Saline] 250 ml IV ONETIME Lactated Ringers [Ringers, Lactated] 1,000 ml Med 10/13/17 10:45 Active IV ASDIRECTED Blood Culture x2 Reflex Set [OM.PC] Urgent Oth 10/13/17 10:44 Ordered Resuscitation Status Routine Resus Stat 10/13/17 13:41 Ordered Medication Orders Lactated Ringer's (Ringers, Lactated) 1,000 mls @ 500 mls/hr IV ASDIRECTED LARRY Last Admin: 10/13/17 10:54 Dose: 500 mls/hr Azithromycin 500 mg/ Sodium (Chloride) 250 mls @ 250 mls/hr IV ONETIME ONE Stop: 10/13/17 14:36 Assessment/Plan Comment:: ASSESSMENT AND PLAN - Acute bronchitis with hypoxic respiratory failure and COPD exacerbation - history of COPD with intermittent home oxygen use. Significant hypoxia at presentation as well as increased work of breathing. Responding well to treatment so far with nebulizers and noninvasive ventilation. Still requiring the noninvasive ventilation. Chest x-ray did not suggest pneumonia. Suspect bacterial infection with significant leukocytosis though she is not currently febrile. -Ceftriaxone and azithromycin -IV steroids -Continue noninvasive ventilation, wean as able -Supplement oxygen -Scheduled and as needed nebulizers -Sputum culture if able Insulin-dependent diabetes mellitus - Sugars well-controlled by history. Patient uses a [id number] with her long acting insulin. -Scheduled 20 units of long acting insulin in the morning, may need adjustment depending on sugars, especially in the setting of steroids -Sliding-scale insulin Obesity with BMI greater than 40 - Current BMI is 42. Maintenance issues - - DVT prophylaxis - antiembolism stockings - GI prophylaxis - not indicated - Nutrition - diabetic diet - Vega catheter - not indicated CODE STATUS - full code Admission justification - This patient will be admitted for inpatient services and is medically appropriate meeting medical necessity for inpatient admission as outlined in my documentation. I reasonably expect the patient will require inpatient services that span a period time over 2 midnights. I reasonably expect this patient to be discharged or transferred within 96 hours after admission to the [facility]. Disposition - I would anticipate discharge to home after the hospital stay Primary care physician - Dr Pal Damian M.D.
[2017-10-13] MEDS ORDERED: Acetaminophen 325 MG Tab PO PRN (14:21)
[2017-10-13] MEDS ORDERED: Codeine/guaiFENesin 100mg-10 MG/5 ML Syrup 10 ML Cup PO PRN (14:21)
[2017-10-13] MEDS ORDERED: Polyethylene Glycol 3350 Powder 17 GM Packet PO PRN (14:21)
[2017-10-13] MEDS ORDERED: Morphine 2 MG/ML Syringe IVPUSH PRN (14:21)
[2017-10-13] MEDS ORDERED: LORazepam 2 MG/ML SDV IVPUSH PRN (14:21)
[2017-10-13] MEDS ORDERED: Ondansetron 4 MG Tab.DIS PO PRN (14:21)
[2017-10-13] MEDS ORDERED: Albuterol 0.083% 2.5 MG/3 ML Neb Soln NEB PRN (14:21)
[2017-10-13] MEDS ORDERED: Ondansetron 4 MG/2 ML SDV IV PRN (14:21)
[2017-10-13] MEDS ORDERED: Benzonatate 100 MG Cap PO PRN (14:21)
[2017-10-13] MEDS ORDERED: Fluticasone Propionate Nasal Spray 16 GM Bottle NASBOTH PRN (14:21)
[2017-10-13] MEDS: Albuterol/Ipratropium 3.0-0.5 MG/3 ML Neb Soln NEB SCH ×2 (14:44→21:30)
[2017-10-13] MEDS: Sodium Chloride 0.9% 1,000 ML IV SCH (14:58)
[2017-10-13] MEDS ORDERED: Insulin Aspart 100 Units/ML 3 ML Pen SUBCUT ONE (15:55)
[2017-10-13] MEDS: Insulin Aspart 100 Units/ML 3 ML Pen SUBCUT SCH ×2 (18:04→21:37)
[2017-10-13] MEDS: methylPREDNISolone Sodium Succinate 125 MG/2 ML SDV IVPUSH SCH (21:30)
[2017-10-13] MEDS: Simvastatin 20 MG Tab PO SCH (21:30)
[2017-10-14] MEDS: Sodium Chloride 0.9% 1,000 ML IV SCH (01:17)
[2017-10-14] MEDS: methylPREDNISolone Sodium Succinate 125 MG/2 ML SDV IVPUSH SCH (05:48)
[2017-10-14] MEDS: Albuterol/Ipratropium 3.0-0.5 MG/3 ML Neb Soln NEB SCH ×4 (07:07→20:40)
[2017-10-14] MEDS: Insulin Aspart 100 Units/ML 3 ML Pen SUBCUT SCH ×4 (08:01→20:41)
[2017-10-14] MEDS: Levothyroxine 100 MCG Tab PO SCH (08:05)
[2017-10-14] MEDS: glipiZIDE 5 MG Tab PO SCH (08:05)
[2017-10-14] MEDS: Bumetanide 1 MG Tab PO SCH (08:05)
[2017-10-14] MEDS: metFORMIN 500 MG Tab.ER PO SCH (08:05)
[2017-10-14] MEDS: Oxybutynin 5 MG Tab PO SCH (08:06)
[2017-10-14] MEDS: Atenolol 25 MG Tab PO SCH (08:06)
[2017-10-14] MEDS: Ibuprofen 400 MG Tab PO SCH (08:06)
[2017-10-14] MEDS ORDERED: INSULIN DEGLUDEC 35 UNIT SUBCUT SCH (09:00)
[2017-10-14] MEDS ORDERED: Non-Formulary Medication 1 Each (Insulin Degludec [Tresiba Flextouch U-100] 20 UNITS) SUBCUT SCH (09:00)
--- NOTE | 2017-10-14 09:21 | PCM.PN ---
- General Info Date of Service: 10/14/17 Functional Status: Reports: Pain Controlled, Tolerating Diet - Review of Systems Pulmonary: Reports: Shortness of Breath, Cough Systems Review Comment:: There were no acute events overnight. The patient is now off of the noninvasive ventilation and maintaining good oxygen saturation with only 2 L of supplemental oxygen. She feels much less short of breath today. She is still coughing but has not been able to produce sputum. No fevers overnight. White blood cell count has improved significantly. No chest pain or diarrhea. - Patient Data Vitals - Most Recent: Last Vital Signs Temp 36.1 C 10/14/17 08:00 Pulse 97 10/14/17 08:06 Resp 22 H 10/14/17 08:00 BP 173/75 H 10/14/17 08:06 Pulse Ox 94 L 10/14/17 08:00 Weight - Most Recent: 113.398 kg I&O - Last 24 Hours: Intake & Output 10/13/17 10/14/17 10/14/17 22:59 06:59 14:59 Intake Total 2210 1054 Output Total 750 1300 Balance 1460 -246 Lab Results Last 24 Hours: Laboratory Results - last 24 hr 10/13/17 10/13/17 10/13/17 Range/Units 11:00 11:00 11:00 WBC 23.0 H (4.5-11.0) K/uL RBC 5.24 (3.30-5.50) M/uL Hgb 15.6 H D (12.0-15.0) g/dL Hct 48.9 H (36.0-48.0) % MCV 93 (80-98) fL MCH 30 (27-31) pg MCHC 32 (32-36) % Plt Count 267 (150-400) K/uL Neut % (Auto) 94 H (36-66) % Lymph % (Auto) 2 L (24-44) % Montgomery % (Auto) 4 (2-6) % Eos % (Auto) 0 L (2-4) % Baso % (Auto) 0 (0-1) % Puncture Site ABG pH (7.350-7.450) ABG pCO2 (35.0-42.0) mmHg ABG pO2 (75.0-100.0) mmHg ABG HCO3 (22.0-26.0) mmol/L ABG Total CO2 (21.0-25.0) mmol/L ABG O2 Saturation (95.0-98.0) % ABG O2 Content (15.0-23.0) %vol ABG Base Excess mm/L ABG Hemoglobin (12.0-16.0) g/dL ABG Oxyhemoglobin % ABG Carboxyhemoglobin (0.0-1.6) % ABG Methemoglobin % Alen Test O2 Delivery Device Oxygen Flow Rate L Sodium 143 (140-148) mmol/L Potassium 4.5 (3.6-5.2) mmol/L Chloride 106 (100-108) mmol/L Carbon Dioxide 28 (21-32) mmol/L Anion Gap 9.1 (5.0-14.0) mmol/L BUN 23 H (7-18) mg/dL Creatinine 1.2 H (0.6-1.0) mg/dL Est Cr Clr Drug Dosing 36.75 mL/min Estimated GFR (MDRD) 44 L (>60) Glucose 216 H (74-106) mg/dL Lactic Acid 1.2 (0.4-2.0) mmol/L Calcium 8.7 (8.5-10.1) mg/dL Magnesium (1.8-2.4) mg/dL Total Bilirubin 0.5 (0.2-1.0) mg/dL AST 16 (15-37) U/L ALT 22 (12-78) U/L Alkaline Phosphatase 77 (46-116) U/L C-Reactive Protein 8.89 H (0.0-0.3) mg/dL NT-Pro-B Natriuret Pep (5-450) pg/mL Total Protein 7.6 (6.4-8.2) g/dL Albumin 3.7 (3.4-5.0) g/dL Globulin 3.9 H (2.3-3.5) g/dL Albumin/Globulin Ratio 1.0 L (1.2-2.2) Urine Color Urine Appearance Urine pH (4.5-8.0) Ur Specific Shiro (1.008-1.030) Urine Protein (NEGATIVE) mg/dL Urine Glucose (UA) (NEGATIVE) mg/dL Urine Ketones (NEGATIVE) mg/dL Urine Occult Blood (NEGATIVE) Urine Nitrite (NEGATIVE) Urine Bilirubin (NEGATIVE) Urine Urobilinogen (NORMAL) mg/dL Ur Leukocyte Esterase (NEGATIVE) Urine RBC (0-5) Urine WBC (0-5) Ur Epithelial Cells Amorphous Sediment Urine Bacteria Urine Mucus 10/13/17 10/13/17 10/13/17 Range/Units 11:00 11:00 16:37 WBC (4.5-11.0) K/uL RBC (3.30-5.50) M/uL Hgb (12.0-15.0) g/dL Hct (36.0-48.0) % MCV (80-98) fL MCH (27-31) pg MCHC (32-36) % Plt Count (150-400) K/uL Neut % (Auto) (36-66) % Lymph % (Auto) (24-44) % Montgomery % (Auto) (2-6) % Eos % (Auto) (2-4) % Baso % (Auto) (0-1) % Puncture Site Rt radial ABG pH 7.355 (7.350-7.450) ABG pCO2 46.7 H (35.0-42.0) mmHg ABG pO2 69.8 L (75.0-100.0) mmHg ABG HCO3 25.4 (22.0-26.0) mmol/L ABG Total CO2 22.2 (21.0-25.0) mmol/L ABG O2 Saturation 93.5 L (95.0-98.0) % ABG O2 Content 20.1 (15.0-23.0) %vol ABG Base Excess -0.1 mm/L ABG Hemoglobin 15.5 (12.0-16.0) g/dL ABG Oxyhemoglobin 92.1 % ABG Carboxyhemoglobin 0.9 (0.0-1.6) % ABG Methemoglobin 0.6 % Alen Test Pass O2 Delivery Device Simple mask Oxygen Flow Rate 15 L Sodium (140-148) mmol/L Potassium (3.6-5.2) mmol/L Chloride (100-108) mmol/L Carbon Dioxide (21-32) mmol/L Anion Gap (5.0-14.0) mmol/L BUN (7-18) mg/dL Creatinine (0.6-1.0) mg/dL Est Cr Clr Drug Dosing mL/min Estimated GFR (MDRD) (>60) Glucose (74-106) mg/dL Lactic Acid (0.4-2.0) mmol/L Calcium (8.5-10.1) mg/dL Magnesium (1.8-2.4) mg/dL Total Bilirubin (0.2-1.0) mg/dL AST (15-37) U/L ALT (12-78) U/L Alkaline Phosphatase (46-116) U/L C-Reactive Protein (0.0-0.3) mg/dL NT-Pro-B Natriuret Pep 2995 H (5-450) pg/mL Total Protein (6.4-8.2) g/dL Albumin (3.4-5.0) g/dL Globulin (2.3-3.5) g/dL Albumin/Globulin Ratio (1.2-2.2) Urine Color Yellow Urine Appearance Cloudy Urine pH 5.0 (4.5-8.0) Ur Specific Shiro 1.020 (1.008-1.030) Urine Protein Negative (NEGATIVE) mg/dL Urine Glucose (UA) Normal (NEGATIVE) mg/dL Urine Ketones Negative (NEGATIVE) mg/dL Urine Occult Blood Moderate (NEGATIVE) Urine Nitrite Negative (NEGATIVE) Urine Bilirubin Negative (NEGATIVE) Urine Urobilinogen Normal (NORMAL) mg/dL Ur Leukocyte Esterase Moderate (NEGATIVE) Urine RBC Not seen (0-5) Urine WBC 20-30 H (0-5) Ur Epithelial Cells Few Amorphous Sediment Few Urine Bacteria Many Urine Mucus Rare 10/14/17 10/14/17 Range/Units 04:47 05:11 WBC 11.3 H (4.5-11.0) K/uL RBC 4.90 (3.30-5.50) M/uL Hgb 14.3 (12.0-15.0) g/dL Hct 45.5 (36.0-48.0) % MCV 93 (80-98) fL MCH 29 (27-31) pg MCHC 31 L (32-36) % Plt Count 207 (150-400) K/uL Neut % (Auto) (36-66) % Lymph % (Auto) (24-44) % Montgomery % (Auto) (2-6) % Eos % (Auto) (2-4) % Baso % (Auto) (0-1) % Puncture Site ABG pH (7.350-7.450) ABG pCO2 (35.0-42.0) mmHg ABG pO2 (75.0-100.0) mmHg ABG HCO3 (22.0-26.0) mmol/L ABG Total CO2 (21.0-25.0) mmol/L ABG O2 Saturation (95.0-98.0) % ABG O2 Content (15.0-23.0) %vol ABG Base Excess mm/L ABG Hemoglobin (12.0-16.0) g/dL ABG Oxyhemoglobin % ABG Carboxyhemoglobin (0.0-1.6) % ABG Methemoglobin % Alen Test O2 Delivery Device Oxygen Flow Rate L Sodium 146 (140-148) mmol/L Potassium 4.6 (3.6-5.2) mmol/L Chloride 109 H (100-108) mmol/L Carbon Dioxide 28 (21-32) mmol/L Anion Gap 13.6 (5.0-14.0) mmol/L BUN 22 H (7-18) mg/dL Creatinine 1.2 H (0.6-1.0) mg/dL Est Cr Clr Drug Dosing 36.75 mL/min Estimated GFR (MDRD) 44 L (>60) Glucose 279 H (74-106) mg/dL Lactic Acid (0.4-2.0) mmol/L Calcium 8.5 (8.5-10.1) mg/dL Magnesium 1.7 L (1.8-2.4) mg/dL Total Bilirubin (0.2-1.0) mg/dL AST (15-37) U/L ALT (12-78) U/L Alkaline Phosphatase (46-116) U/L C-Reactive Protein (0.0-0.3) mg/dL NT-Pro-B Natriuret Pep (5-450) pg/mL Total Protein (6.4-8.2) g/dL Albumin (3.4-5.0) g/dL Globulin (2.3-3.5) g/dL Albumin/Globulin Ratio (1.2-2.2) Urine Color Urine Appearance Urine pH (4.5-8.0) Ur Specific Shiro (1.008-1.030) Urine Protein (NEGATIVE) mg/dL Urine Glucose (UA) (NEGATIVE) mg/dL Urine Ketones (NEGATIVE) mg/dL Urine Occult Blood (NEGATIVE) Urine Nitrite (NEGATIVE) Urine Bilirubin (NEGATIVE) Urine Urobilinogen (NORMAL) mg/dL Ur Leukocyte Esterase (NEGATIVE) Urine RBC (0-5) Urine WBC (0-5) Ur Epithelial Cells Amorphous Sediment Urine Bacteria Urine Mucus Med Orders - Current: Current Medications Acetaminophen (Tylenol) 650 mg PO Q4H PRN PRN Reason: Pain (Mild 1-3)/fever Last Admin: 10/13/17 18:04 Dose: 650 mg Albuterol (Proventil Neb Soln) 2.5 mg NEB Q4H PRN PRN Reason: Shortness Of Breath/wheezing Albuterol/Ipratropium (Duoneb 3.0-0.5 Mg/3 Ml) 3 ml NEB QIDRT [facility] Last Admin: 10/14/17 07:07 Dose: 3 ml Atenolol (Tenormin) 25 mg PO DAILY [facility] Last Admin: 10/14/17 08:06 Dose: 25 mg Benzonatate (Tessalon Perles) 100 mg PO TID PRN PRN Reason: Cough Bumetanide (Bumex) 0.5 mg PO DAILY [facility] Last Admin: 10/14/17 08:05 Dose: 0.5 mg Fluticasone Propionate (Flonase) 0 gm NASBOTH DAILY PRN PRN Reason: Congestion Glipizide (Glucotrol) 20 mg PO DAILY@0800 [facility] Last Admin: 10/14/17 08:05 Dose: 20 mg Guaifenesin/Codeine Phosphate (Robitussin Ac) 10 ml PO Q4H PRN PRN Reason: Cough Last Admin: 10/14/17 01:43 Dose: 10 ml Ceftriaxone Sodium 2 gm/ (Sodium Chloride) 50 mls @ 100 mls/hr IV Q24H [facility] Ibuprofen (Motrin) 400 mg PO DAILY [facility] Last Admin: 10/14/17 08:06 Dose: 400 mg Insulin Aspart (Novolog) 0 unit SUBCUT QIDACANDBED [facility]; Protocol Levothyroxine Sodium (Synthroid) 100 mcg PO DAILY@0730 [facility] Last Admin: 10/14/17 08:05 Dose: 100 mcg Lorazepam (Ativan) 0.5 mg IVPUSH Q4H PRN PRN Reason: Anxiety Metformin HCl (Glucophage Xr) 1,000 mg PO DAILY@0800 [facility] Last Admin: 10/14/17 08:05 Dose: 1,000 mg Non-Formulary Medication (Insulin Degludec [Tresiba Flextouch U-100]) 30 units SUBCUT DAILY [facility] Ondansetron HCl (Zofran Odt) 4 mg PO Q6H PRN PRN Reason: Nausea able to take PO Ondansetron HCl (Zofran) 4 mg IV Q6H PRN PRN Reason: Nausea/Vomiting Oxybutynin Chloride (Oxybutynin) 5 mg PO DAILY [facility] Last Admin: 10/14/17 08:06 Dose: 5 mg Polyethylene Glycol (Miralax) 17 gm PO DAILY PRN PRN Reason: Constipation Senna/Docusate Sodium (Senna Plus) 1 tab PO BID PRN PRN Reason: Constipation Simvastatin (Zocor) 20 mg PO BEDTIME [facility] Last Admin: 10/13/17 21:30 Dose: 20 mg Discontinued Medications Albuterol/Ipratropium (Duoneb 3.0-0.5 Mg/3 Ml) 3 ml NEB ONETIME ONE Stop: 10/13/17 10:48 Last Admin: 10/13/17 10:53 Dose: 3 ml Lactated Ringer's (Ringers, Lactated) 1,000 mls @ 500 mls/hr IV ASDIRECTED [facility] Last Admin: 10/13/17 10:54 Dose: 500 mls/hr Ceftriaxone Sodium 2 gm/ (Sodium Chloride) 50 mls @ 100 mls/hr IV ONETIME ONE Stop: 10/13/17 11:29 Last Admin: 10/13/17 11:16 Dose: 100 mls/hr Azithromycin 500 mg/ Sodium (Chloride) 250 mls @ 250 mls/hr IV ONETIME ONE Stop: 10/13/17 14:36 Last Admin: 10/13/17 14:02 Dose: 250 mls/hr Azithromycin 500 mg/ Sodium (Chloride) 250 mls @ 250 mls/hr IV Q24H [facility] Sodium Chloride (Normal Saline) 1,000 mls @ 100 mls/hr IV ASDIRECTED [facility] Last Admin: 10/14/17 01:17 Dose: 100 mls/hr Insulin Aspart (Novolog) 0 unit SUBCUT QIDACANDBED [facility]; Protocol Last Admin: 10/14/17 08:01 Dose: 3 units Insulin Aspart (Novolog) 1 unit SUBCUT ONETIME ONE Stop: 10/13/17 15:56 Last Admin: 10/13/17 16:07 Dose: 1 unit Methylprednisolone Sodium Succinate (Solu-Medrol) 125 mg IVPUSH ONETIME ONE Stop: 10/13/17 13:38 Last Admin: 10/13/17 14:07 Dose: 125 mg Methylprednisolone Sodium Succinate (Solu-Medrol) 62.5 mg IVPUSH Q8H LARRY Last Admin: 10/14/17 05:48 Dose: 62.5 mg Morphine Sulfate (Morphine) 2 mg IVPUSH Q2H PRN PRN Reason: Pain (severe 7-10) Non-Formulary Medication (Insulin Degludec [Tresiba Flextouch U-100]) 35 units SUBCUT DAILY LARRY Non-Formulary Medication (Insulin Degludec [Tresiba Flextouch U-100]) 20 units SUBCUT DAILY LARRY - Exam Quality Assessment: Supplemental Oxygen General: Alert, Oriented, Cooperative, No Acute Distress Neck: Supple Lungs: Normal Respiratory Effort, Rhonchi (diffuse upper airway rhonchi with expiration). No: Wheezing Cardiovascular: Regular Rate, Regular Rhythm GI/Abdominal Exam: Soft, No Distention Skin: Warm, Dry Psy/Mental Status: Alert, Normal Affect - Problem List & Annotations (1) Acute bronchitis SNOMED Code(s): 14177954 Code(s): J20.9 - ACUTE BRONCHITIS, UNSPECIFIED Status: Acute Current Visit: Yes Qualifiers: Bronchitis organism: unspecified organism Qualified Code(s): J20.9 - Acute bronchitis, unspecified (2) Acute respiratory failure with hypoxia SNOMED Code(s): 88973062, 736333073 Code(s): J96.01 - ACUTE RESPIRATORY FAILURE WITH HYPOXIA Status: Acute Current Visit: Yes (3) Acute exacerbation of chronic obstructive airways disease SNOMED Code(s): 077517961 Code(s): J44.1 - CHRONIC OBSTRUCTIVE PULMONARY DISEASE W (ACUTE) EXACERBATION Status: Acute Current Visit: Yes (4) Morbid obesity with BMI of 40.0-44.9, adult SNOMED Code(s): 402111465 Code(s): E66.01 - MORBID (SEVERE) OBESITY DUE TO EXCESS CALORIES; Z68.41 - BODY MASS INDEX (BMI) 40.0-44.9, ADULT Status: Chronic Current Visit: No (5) Type 2 diabetes mellitus SNOMED Code(s): 27209402 Code(s): E11.9 - TYPE 2 DIABETES MELLITUS WITHOUT COMPLICATIONS Status: Chronic Current Visit: No Qualifiers: Diabetes mellitus half-way insulin use: with half-way use Diabetes mellitus complication status: with unspecified complications Qualified Code(s) : E11.8 - Type 2 diabetes mellitus with unspecified complications; Z79.4 - half-way (current) use of insulin - Problem List Review Problem List Initiated/Reviewed/Updated: Yes - My Orders Last 24 Hours: My Active Orders 10/13/17 13:41 Resuscitation Status Routine 10/13/17 14:21 Patient Status [ADT] Routine Diabetes Education [RC] Click to Edit Intake and Output [RC] QSHIFT Notify Provider Vital Signs [RC] ASDIRECTED Notify Provider [RC] PRN Oxygen Therapy [RC] PRN Pulse Oximetry [RC] CONTINUOUS RT Aerosol Therapy [RC] ASDIRECTED Up With Assistance [RC] ASDIRECTED Vital Signs [RC] Q4H Acetaminophen [Tylenol] 650 mg PO Q4H PRN Albuterol [Proventil Neb Soln] 2.5 mg NEB Q4H PRN Benzonatate [Tessalon Perles] 100 mg PO TID PRN Codeine/guaiFENesin [Robitussin AC] 10 ml PO Q4H PRN Docusate Sodium/Sennosides [Senna Plus] 1 tab PO BID PRN Fluticasone Propionate [Flonase] 0 gm NASBOTH DAILY PRN LORazepam [Ativan] 0.5 mg IVPUSH Q4H PRN Ondansetron [Zofran ODT] 4 mg PO Q6H PRN Ondansetron [Zofran] 4 mg IV Q6H PRN Polyethylene Glycol 3350 [MiraLAX] 17 gm PO DAILY PRN Antiembolic Hose [OM.PC] Per Unit Routine 10/13/17 15:00 Albuterol/Ipratropium [DuoNeb 3.0-0.5 MG/3 ML] 3 ml NEB QIDRT 10/13/17 20:00 Accu Check [Blood Glucose Check, Bedside] [RC] WITHMEALSANDBED 10/13/17 21:00 Simvastatin [Zocor] 20 mg PO BEDTIME 10/13/17 21:20 CULTURE RESPIRATORY + SMEAR [RM] Routine 10/13/17 Dinner Consistent Carbohydrate Diet [DIET] 10/14/17 07:00 Blood Glucose Check, Bedside [RC] WITHMEALSANDBED 10/14/17 07:30 Levothyroxine [Synthroid] 100 mcg PO DAILY@0730 10/14/17 08:00 glipiZIDE [Glucotrol] 20 mg PO DAILY@0800 metFORMIN [Glucophage XR] 1,000 mg PO DAILY@0800 10/14/17 08:24 Communication Order [RC] PRN Communication Order [RC] PRN 10/14/17 09:00 Atenolol [Tenormin] 25 mg PO DAILY Bumetanide [Bumex] 0.5 mg PO DAILY Ibuprofen [Motrin] 400 mg PO DAILY Insulin Degludec [Tresiba Flextouch U-100] 30 units SUBCUT DAILY Oxybutynin 5 mg PO DAILY 10/14/17 09:18 Discontinue Telemetry Monitoring [Cardiac Monitoring Discontinue] [RC] Click to Edit Convert IV to Saline Lock [OM.PC] Routine 10/14/17 09:20 Transfer Patient (Change bed) [ADT] Routine 10/14/17 11:00 Insulin Aspart [NovoLOG] See Protocol SUBCUT QIDACANDBED 10/14/17 14:00 Azithromycin [Zithromax] 500 mg PO Q24H cefTRIAXone [Rocephin] 2 gm Sodium Chloride 0.9% [Normal Saline] 50 ml IV Q24H 10/15/17 07:30 GLUCOSE POC LAB TO COLLECT [POC] QIDACANDBED 10/15/17 11:30 GLUCOSE POC LAB TO COLLECT [POC] QIDACANDBED 10/15/17 16:30 GLUCOSE POC LAB TO COLLECT [POC] QIDACANDBED 10/15/17 21:00 GLUCOSE POC LAB TO COLLECT [POC] QIDACANDBED 10/16/17 07:30 GLUCOSE POC LAB TO COLLECT [POC] QIDACANDBED 10/16/17 11:30 GLUCOSE POC LAB TO COLLECT [POC] QIDACANDBED 10/16/17 16:30 GLUCOSE POC LAB TO COLLECT [POC] QIDACANDBED 10/16/17 21:00 GLUCOSE POC LAB TO COLLECT [POC] QIDACANDBED 10/17/17 07:30 GLUCOSE POC LAB TO COLLECT [POC] QIDACANDBED 10/17/17 11:30 GLUCOSE POC LAB TO COLLECT [POC] QIDACANDBED 10/17/17 16:30 GLUCOSE POC LAB TO COLLECT [POC] QIDACANDBED 10/17/17 21:00 GLUCOSE POC LAB TO COLLECT [POC] QIDACANDBED 10/18/17 07:30 GLUCOSE POC LAB TO COLLECT [POC] QIDACANDBED 10/18/17 11:30 GLUCOSE POC LAB TO COLLECT [POC] QIDACANDBED 10/18/17 16:30 GLUCOSE POC LAB TO COLLECT [POC] QIDACANDBED 10/18/17 21:00 GLUCOSE POC LAB TO COLLECT [POC] QIDACANDBED - Plan Plan:: ASSESSMENT AND PLAN - Acute bronchitis with hypoxic respiratory failure and COPD exacerbation - history of COPD with intermittent home oxygen use. Dramatic improvement overnight and now off noninvasive ventilation. -Ceftriaxone and azithromycin -Transition steroids to prednisone -Supplement oxygen -Scheduled and as needed nebulizers -Sputum culture if able Insulin-dependent diabetes mellitus - Sugars well-controlled by history but have been more elevated probably secondary to IV steroids. -Scheduled 30 units of long acting insulin in the morning, may need adjustment depending on sugars, especially in the setting of steroids -Sliding-scale insulin Obesity with BMI greater than 40 - Current BMI is 42. Maintenance issues - - DVT prophylaxis - antiembolism stockings - GI prophylaxis - not indicated - Nutrition - diabetic diet Disposition - I would anticipate discharge to home after the hospital stay. She is safe for transfer out of the intensive care unit today. Agapito Damian M.D.
--- NOTE | 2017-10-14 09:39 | CR ---
Chest 1V Frontal INDICATION: hypoxic FINDINGS: Comparison 09/24/2006. Cardiac enlargement with pulmonary venous hypertension. Mild hyperinfl ation. Surgical clips overlying the right axilla. Aortic calcification. Findings suggest early CHF.
[2017-10-14] MEDS: INSULIN DEGLUDEC SUBCUT SCH (10:26)
[2017-10-14] MEDS ORDERED: Azithromycin 250 MG Tab PO SCH (14:00)
[2017-10-14] MEDS ORDERED: cefTRIAXone 2 GM in Sodium Chloride 0.9% 50 ML IV SCH (14:00)
[2017-10-14] MEDS ORDERED: Azithromycin 500 MG in Sodium Chloride 0.9% 250 ML IV SCH (14:00)
[2017-10-14] MEDS: Simvastatin 20 MG Tab PO SCH (20:39)
[2017-10-15] MEDS: Albuterol/Ipratropium 3.0-0.5 MG/3 ML Neb Soln NEB SCH (07:19)
[2017-10-15] MEDS: Insulin Aspart 100 Units/ML 3 ML Pen SUBCUT SCH (07:50)
[2017-10-15] MEDS: Levothyroxine 100 MCG Tab PO SCH (07:50)
[2017-10-15] MEDS: glipiZIDE 5 MG Tab PO SCH (08:26)
[2017-10-15] MEDS: metFORMIN 500 MG Tab.ER PO SCH (08:26)
[2017-10-15] MEDS: Bumetanide 1 MG Tab PO SCH (08:27)
[2017-10-15] MEDS: Ibuprofen 400 MG Tab PO SCH (08:28)
[2017-10-15] MEDS: INSULIN DEGLUDEC SUBCUT SCH (08:28)
[2017-10-15] MEDS: Oxybutynin 5 MG Tab PO SCH (08:29)
[2017-10-15] MEDS: Atenolol 25 MG Tab PO SCH (08:29)
[2017-10-15] MEDS ORDERED: predniSONE 20 MG Tab PO ONE (09:13)
[2017-10-15] MEDS ORDERED: Cefdinir 300 MG Cap PO ONE (09:14)
--- NOTE | 2017-10-15 09:26 | PCM.DCSUM1 ---
Discharge Summary - Hospital Course Brief History: 77-year-old female with COPD, intermittent home oxygen use and insulin-dependent diabetes who presented with progressive cough and shortness of breath. She was admitted for management of acute bronchitis with COPD exacerbation and hypoxic respiratory failure. - Discharge Data Discharge Date: 10/15/17 Discharge Disposition: Home, Self-Care 01 Condition: Good - Discharge Diagnosis/Problem(s) (1) Acute bronchitis SNOMED Code(s): 96809405 ICD Code: J20.9 - ACUTE BRONCHITIS, UNSPECIFIED Status: Acute Qualifiers: Bronchitis organism: unspecified organism Qualified Code(s): J20.9 - Acute bronchitis, unspecified (2) Acute respiratory failure with hypoxia SNOMED Code(s): 68942945, 998846235 ICD Code: J96.01 - ACUTE RESPIRATORY FAILURE WITH HYPOXIA Status: Acute (3) Acute exacerbation of chronic obstructive airways disease SNOMED Code(s): 160234143 ICD Code: J44.1 - CHRONIC OBSTRUCTIVE PULMONARY DISEASE W (ACUTE) EXACERBATION Status: Acute (4) Morbid obesity with BMI of 40.0-44.9, adult SNOMED Code(s): 438774615 ICD Code: E66.01 - MORBID (SEVERE) OBESITY DUE TO EXCESS CALORIES; Z68.41 - BODY MASS INDEX (BMI) 40.0-44.9, ADULT Status: Chronic (5) Type 2 diabetes mellitus SNOMED Code(s): 26984585 ICD Code: E11.9 - TYPE 2 DIABETES MELLITUS WITHOUT COMPLICATIONS Status: Chronic Qualifiers: Diabetes mellitus detention insulin use: with detention use Diabetes mellitus complication status: with unspecified complications Qualified Code(s) : E11.8 - Type 2 diabetes mellitus with unspecified complications; Z79.4 - prison (current) use of insulin - Patient Summary/Data Hospital Course: Giana presented to the emergency room with progressive and acute shortness of breath and cough. Workup in the emergency room revealed acute hypoxic respiratory failure thought secondary to acute bronchitis as well as an acute exacerbation of COPD. She required noninvasive ventilation in the emergency room. Her white blood cell count was 23,000 at the time of presentation. She was started on spectrum antibiotics and steroids and admitted to the intensive care unit with the noninvasive ventilation. Overnight following admission we were able to wean her off of the noninvasive ventilation. She tolerated treatment with ceftriaxone and azithromycin well. She tolerated her IV steroids well. With her quick improvement we were able to transition to prednisone the day after admission. She had ongoing improvement throughout the second night of hospitalization. By the morning of discharge she is now down to 1 L of supplemental oxygen. She has not required noninvasive ventilation since the night of admission. She has been up and walking around and is somewhat short of breath with activity but much better than at the time of admission. White blood cell count went from 23,000 down to 11,000 the day after admission. She has not had any fevers. She feels well and feels comfortable going home at this point. She has supplemental oxygen available at home. The plan is for her to complete 5 days of steroids and antibiotics. She will have early follow-up with her care next week. - Patient Instructions Diet: Diabetic Diet Activity: As Tolerated Showering/Bathing: May Shower Notify Provider of: Fever, Increased Pain, Nausea and/or Vomiting Other/Special Instructions: 1. You were in the hospital for management of acute bronchitis with hypoxic respiratory failure. We did not determine a causative bacteria but you have been getting better with our current antibiotic treatment. Please continue your home oxygen at 1 L while you are resting and 2 L with activity until you're oxygen normalizes, probably in the next few days. I recommend additional antibiotic therapy and steroid therapy as listed below: - -Azithromycin 500 mg tablets, take 1 tablet daily at 2 PM for 3 doses. Your next dose is due this afternoon (antibiotic). --Cefdinir 300 mg capsule, take 1 capsule twice daily for 5 doses. Your next dose is due tonight (antibiotic). --Prednisone 20 mg tablets, take 1 tablet twice daily with food for 5 more doses. Your next dose is due this afternoon. (Steroid/anti-inflammatory). 2. Continue your usual medications as previously prescribed. 3. Follow up With Dr. Aguillon next week. 4. Seek medical attention if you develop fever greater than 101, you develop severe shortness of breath or if you develop chest pain/ pressure. - Discharge Plan Prescriptions/Med Rec: Azithromycin 500 mg PO Q24H #3 tablet Cefdinir 300 mg PO BID #5 capsule Codeine/guaiFENesin [Robitussin AC] 10 ml PO Q4H #236 ml predniSONE [Prednisone] 20 mg PO BIDAC #5 tablet Home Medications: Home Meds Albuterol/Ipratropium [Combivent Respimat] 1 puff PO Q4H PRN 04/06/17 [History] Atenolol [Tenormin] 25 mg PO DAILY 04/06/17 [History] Bumetanide 0.5 mg PO DAILY 04/06/17 [History] Fluticasone Propionate [Flonase Allergy Relief] 1 spray NASBOTH DAILY PRN [History] Ibuprofen [Advil] 400 mg PO DAILY 04/06/17 [History] Indomethacin 25 mg PO TID PRN 04/06/17 [History] Levothyroxine [Synthroid] 100 mcg PO DAILY 04/06/17 [History] Oxybutynin Chloride 5 mg PO DAILY 04/06/17 [History] Simvastatin [Zocor] 20 mg PO BEDTIME 04/06/17 [History] glipiZIDE [Glucotrol] 20 mg PO DAILY 04/06/17 [History] metFORMIN [Glucophage XR] 1,000 mg PO DAILY 04/06/17 [History] Insulin Degludec [Tresiba Flextouch U-100] 35 units SUBCUT DAILY 10/13/17 [ History] Azithromycin 500 mg PO Q24H #3 tablet 10/15/17 [Rx] Cefdinir 300 mg PO BID #5 capsule 10/15/17 [Rx] Codeine/guaiFENesin [Robitussin AC] 10 ml PO Q4H #236 ml 10/15/17 [Rx] predniSONE [Prednisone] 20 mg PO BIDAC #5 tablet 10/15/17 [Rx] Patient Handouts: Prednisone tablets, Acute Bronchitis, Adult Referrals: Franki Davis NP [Nurse Practitioner] - 10/22/17 10:00 am - Discharge Summary/Plan Comment DC Time >30 min.: No (25) - Patient Data Vitals - Most Recent: Last Vital Signs Temp 35.3 C 10/15/17 06:07 Pulse 79 10/15/17 07:21 Resp 18 10/15/17 06:07 BP 177/63 H 10/15/17 08:29 Pulse Ox 94 L 10/15/17 06:07 Weight - Most Recent: 113.398 kg I&O - Last 24 hours: Intake & Output 10/14/17 10/15/17 10/15/17 22:59 06:59 14:59 Intake Total 1040 360 Balance 1040 360 GEOVANNI Results - Last 24 hrs: Microbiology 10/13/17 10:50 Aerobic Blood Culture - Preliminary Blood - Venous - Lab Draw NO GROWTH AFTER 1 DAY Anaerobic Blood Culture - Preliminary NO GROWTH AFTER 1 DAY 10/13/17 11:00 Aerobic Blood Culture - Preliminary Blood - Venous NO GROWTH AFTER 1 DAY Anaerobic Blood Culture - Preliminary NO GROWTH AFTER 1 DAY Med Orders - Current: Current Medications Acetaminophen (Tylenol) 650 mg PO Q4H PRN PRN Reason: Pain (Mild 1-3)/fever Last Admin: 10/13/17 18:04 Dose: 650 mg Albuterol (Proventil Neb Soln) 2.5 mg NEB Q4H PRN PRN Reason: Shortness Of Breath/wheezing Albuterol/Ipratropium (Duoneb 3.0-0.5 Mg/3 Ml) 3 ml NEB QIDRT [facility] Last Admin: 10/15/17 07:19 Dose: 3 ml Atenolol (Tenormin) 25 mg PO DAILY [facility] Last Admin: 10/15/17 08:29 Dose: 25 mg Azithromycin (Zithromax) 500 mg PO Q24H [facility] Last Admin: 10/14/17 13:21 Dose: 500 mg Benzonatate (Tessalon Perles) 100 mg PO TID PRN PRN Reason: Cough Bumetanide (Bumex) 0.5 mg PO DAILY [facility] Last Admin: 10/15/17 08:27 Dose: 0.5 mg Fluticasone Propionate (Flonase) 0 gm NASBOTH DAILY PRN PRN Reason: Congestion Glipizide (Glucotrol) 20 mg PO DAILY@0800 [facility] Last Admin: 10/15/17 08:26 Dose: 20 mg Guaifenesin/Codeine Phosphate (Robitussin Ac) 10 ml PO Q4H PRN PRN Reason: Cough Last Admin: 10/14/17 01:43 Dose: 10 ml Ceftriaxone Sodium 2 gm/ (Sodium Chloride) 50 mls @ 100 mls/hr IV Q24H [facility] Last Admin: 10/14/17 13:20 Dose: 100 mls/hr Ibuprofen (Motrin) 400 mg PO DAILY [facility] Last Admin: 10/15/17 08:28 Dose: 400 mg Insulin Aspart (Novolog) 0 unit SUBCUT QIDACANDBED [facility]; Protocol Last Admin: 10/15/17 07:50 Dose: 6 units Levothyroxine Sodium (Synthroid) 100 mcg PO DAILY@0730 [facility] Last Admin: 10/15/17 07:50 Dose: 100 mcg Lorazepam (Ativan) 0.5 mg IVPUSH Q4H PRN PRN Reason: Anxiety Metformin HCl (Glucophage Xr) 1,000 mg PO DAILY@0800 [facility] Last Admin: 10/15/17 08:26 Dose: 1,000 mg Insulin Degludec [ Tresiba Flextouch U- 100 Pom 30 units SUBCUT DAILY [facility] Last Admin: 10/15/17 08:28 Dose: Not Given Ondansetron HCl (Zofran Odt) 4 mg PO Q6H PRN PRN Reason: Nausea able to take PO Ondansetron HCl (Zofran) 4 mg IV Q6H PRN PRN Reason: Nausea/Vomiting Oxybutynin Chloride (Oxybutynin) 5 mg PO DAILY [facility] Last Admin: 10/15/17 08:29 Dose: 5 mg Polyethylene Glycol (Miralax) 17 gm PO DAILY PRN PRN Reason: Constipation Senna/Docusate Sodium (Senna Plus) 1 tab PO BID PRN PRN Reason: Constipation Simvastatin (Zocor) 20 mg PO BEDTIME [facility] Last Admin: 10/14/17 20:39 Dose: 20 mg Discontinued Medications Albuterol/Ipratropium (Duoneb 3.0-0.5 Mg/3 Ml) 3 ml NEB ONETIME ONE Stop: 10/13/17 10:48 Last Admin: 10/13/17 10:53 Dose: 3 ml Cefdinir (Omnicef) 300 mg PO ONETIME ONE Stop: 10/15/17 09:15 Last Admin: 10/15/17 09:25 Dose: 300 mg Lactated Ringer's (Ringers, Lactated) 1,000 mls @ 500 mls/hr IV ASDIRECTED [facility] Last Admin: 10/13/17 10:54 Dose: 500 mls/hr Ceftriaxone Sodium 2 gm/ (Sodium Chloride) 50 mls @ 100 mls/hr IV ONETIME ONE Stop: 10/13/17 11:29 Last Admin: 10/13/17 11:16 Dose: 100 mls/hr Azithromycin 500 mg/ Sodium (Chloride) 250 mls @ 250 mls/hr IV ONETIME ONE Stop: 10/13/17 14:36 Last Admin: 10/13/17 14:02 Dose: 250 mls/hr Azithromycin 500 mg/ Sodium (Chloride) 250 mls @ 250 mls/hr IV Q24H [facility] Sodium Chloride (Normal Saline) 1,000 mls @ 100 mls/hr IV ASDIRECTED [facility] Last Admin: 10/14/17 01:17 Dose: 100 mls/hr Insulin Aspart (Novolog) 0 unit SUBCUT QIDACANDBED [facility]; Protocol Last Admin: 10/14/17 08:01 Dose: 3 units Insulin Aspart (Novolog) 1 unit SUBCUT ONETIME ONE Stop: 10/13/17 15:56 Last Admin: 10/13/17 16:07 Dose: 1 unit Methylprednisolone Sodium Succinate (Solu-Medrol) 125 mg IVPUSH ONETIME ONE Stop: 10/13/17 13:38 Last Admin: 10/13/17 14:07 Dose: 125 mg Methylprednisolone Sodium Succinate (Solu-Medrol) 62.5 mg IVPUSH Q8H [facility] Last Admin: 10/14/17 05:48 Dose: 62.5 mg Morphine Sulfate (Morphine) 2 mg IVPUSH Q2H PRN PRN Reason: Pain (severe 7-10) Non-Formulary Medication (Insulin Degludec [Tresiba Flextouch U-100]) 35 units SUBCUT DAILY [facility] Non-Formulary Medication (Insulin Degludec [Tresiba Flextouch U-100]) 20 units SUBCUT DAILY [facility] Prednisone (Prednisone) 20 mg PO ONETIME ONE Stop: 10/15/17 09:14 Last Admin: 10/15/17 09:25 Dose: 20 mg - Exam Quality Assessment: Reports: Supplemental Oxygen General: Reports: Alert, Oriented, Cooperative, No Acute Distress Neck: Reports: Supple Lungs: Reports: Normal Respiratory Effort, Wheezing (moderate diffuse exp wheezing) Cardiovascular: Reports: Regular Rate, Regular Rhythm GI/Abdominal Exam: Soft, No Distention Extremities: No Pedal Edema Psy/Mental Status: Reports: Alert, Normal Affect
== END 2017-10-15 09:58 | disposition home or self-care (01) | DRG 189 ==
LOC: JP.ED 10:23 → JP.ICU 13:38
PROVIDERS: ADMIT Internal Medicine; ATTEND Internal Medicine
PROC: 5A09357 Assistance with Respiratory Ventilation, Less than 24 Consecutive Hours, Continuous Positive Airway Pressure (ICD-10-PCS; principal; 2017-10-13)
PROC: 039Y3ZZ Drainage of Upper Artery, Percutaneous Approach (ICD-10-PCS; 2017-10-13)
DX: J96.01 Acute respiratory failure with hypoxia (principal); J44.0 Chronic obstructive pulmonary disease with (acute) lower respiratory infection; Z68.41 Body mass index [BMI] 40.0-44.9, adult; J44.1 Chronic obstructive pulmonary disease with (acute) exacerbation; J20.9 Acute bronchitis, unspecified; M19.90 Unspecified osteoarthritis, unspecified site; E03.9 Hypothyroidism, unspecified; Z87.891 Personal history of nicotine dependence; Z79.4 Long term (current) use of insulin; Z90.710 Acquired absence of both cervix and uterus; Z99.81 Dependence on supplemental oxygen; Z96.649 Presence of unspecified artificial hip joint; Z79.899 Other long term (current) drug therapy; E78.00 Pure hypercholesterolemia, unspecified; E11.22 Type 2 diabetes mellitus with diabetic chronic kidney disease; I12.9 Hypertensive chronic kidney disease with stage 1 through stage 4 chronic kidney disease, or unspecified chronic kidney disease; N18.3 Chronic kidney disease, stage 3 (moderate); R53.83 Other fatigue; R05 Cough; E66.01 Morbid (severe) obesity due to excess calories
CPT/HCPCS: 36600 ×4; 71045 ×2; 80053; 82803; 83605; 83880; 85025; 86140; 87040 ×2; 94640; 94660; 96361; 96365; 99285; J0696; J7050; J7120; J7620; 36415; 80048; 81001; 82962; 83735; 85027; 87070; 87205; A9270-GY; J0456; J2930; J7030